=== PATIENT | female | born 1940 | race American Indian/Alaskan Native ===

== ENCOUNTER 2024-01-28 10:00 | Inpatient (IN) ==
[2024-01-28] MEDS: 0.9 % SODIUM CHLORIDE 1,000 ML IV ONE ×2 (11:10→16:36)
[2024-01-28 11:20] LABS: Basophils # (Auto) 0.04 K/mcL (0.00-0.30); Basophils % (Auto) 0.4 % (0.0-2.0); Eosinophils # (Auto) 0 K/mcL (0.00-0.70); Eosinophils % (Auto) 0 % (0.0-7.0); Hematocrit 32.3 % (34.1-44.9); Hemoglobin 10.9 g/dL (11.2-15.7); Lymphocytes # (Auto) 0.78 K/mcL (1.50-4.80); Lymphocytes % (Auto) 8.2 % (15.5-49.0); Mean Corpuscular HGB Conc 33.7 g/dL (31.0-36.0); Mean Platelet Volume 8.8 fL (8.8-12.5); Monocytes % (Auto) 6.3 % (1.0-12.0); Neutrophils % (Auto) 84.9 % (38.0-78.0); Platelet Count 319 K/mcL (140-440); RBC 3.33 M/mcL (3.59-5.38); Red Cell Distribution Width 14.7 % (11.5-14.5); WBC 9.5 K/mcL (4.5-11.0)
[2024-01-28] MEDS: ACETAMINOPHEN 650 MG/65 ML BAG IV ONE (11:42)
[2024-01-28] MEDS: ACETAMINOPHEN 325 MG TABLET PO ONE (11:43)
[2024-01-28 12:26] LABS: ALT/SGPT < 5 U/L (0-40); AST/SGOT 20 U/L (<32); Albumin 4.3 gm/dL (3.2-5.2); Albumin/Globulin Ratio 1.4 (1.0-2.3); Alkaline Phosphatase 74 U/L (39-117); Bilirubin,Total 0.6 mg/dL (0.1-1.0); Blood Urea Nitrogen 31 mg/dL (8-23); Calcium 9.5 mg/dL (8.6-10.4); Carbon Dioxide 19 mmol/L (22-30); Chloride 102 mmol/L (96-108); Globulin 3.1 gm/dL (2.2-3.7); Glomerular Filtration Rate 42; Glucose 64 mg/dL (70-105)
[2024-01-28 13:21] LABS: Amphetamine Screen,Urine None detected; Barbiturate Screen,Urine None detected; Benzodiazepines Screen,Urine None detected; Cannabinoid Screen,Urine None detected; Cocaine Screen,Urine None detected; Opiate Screen,Urine None detected; Oxycodone, Urine Screen None detected; Phencyclidine Screen,Urine None detected
[2024-01-28 13:31] LABS: Appearance,Urine CLEAR (Clear); Bacteria,Urine MOD /hpf (0); Bilirubin,Urine Negative (Negative); Color,Urine YELLOW; Culture Indicated,Urine Yes; Glucose,Urine (UA) >=500 mg/dL (Negative); Ketones,Urine Negative (Negative); Leukocyte Esterase,Urine Negative /uL (Negative); Mucus,Urine FEW /hpf; Nitrate,Urine Negative (Negative); Protein,Urine 30 mg/dL (Negative); Specific Gravity,Urine 1.014 (1.000-1.035); Urine Blood Negative (Negative); Urine Hyaline Cast 3 /lph (0-2); Urine RBC 1 /hpf (0-3); Urine Squamous Epithelial Cell 2 /hpf (0-4); Urine Transitional Epi Cells < 1 /hpf (0-2); Urine WBC 2 /hpf (0-4); Urobilinogen,Urine Negative
[2024-01-28] MEDS: DEXTROSE 50% 50 ML SYRINGE IV ONE ×2 (13:52→13:55)
[2024-01-28] MEDS: DEXTROSE 10 % IN WATER 1,000 ML IV SCH (14:02)
[2024-01-28 14:14] LABS: Alcohol, Blood < 10.1 mg/dL; Alcohol,Blood < 0.010 gm/dL (<0.010)
[2024-01-28 15:55] LABS: Hemoglobin A1C 6.1 % Hgb (4.0-6.0)
[2024-01-28] MEDS ORDERED: MAGNESIUM SULFATE 2 GM/50 ML BAG IV PRN (16:26)
[2024-01-28] MEDS ORDERED: POLYETHYLENE GLYCOL 3350 17 GM PACKET PO PRN (16:26)
[2024-01-28] MEDS ORDERED: DEXTROSE 31 GM ORAL.SUSP PO PRN (16:26)
[2024-01-28] MEDS ORDERED: ONDANSETRON 4 MG/2 ML VIAL IV PRN (16:26)
[2024-01-28] MEDS ORDERED: POTASSIUM CHLORIDE 20 MEQ TABLET PO PRN ×2 (16:26)
[2024-01-28] MEDS ORDERED: IPRATROPIUM/ALBUTEROL 3 ML AMPUL.NEB NEB PRN (16:26)
[2024-01-28] MEDS ORDERED: POTASSIUM CHLORIDE 40 MEQ in DEXTROSE 5% IN WATER 500 ML IV PRN (16:26)
[2024-01-28] MEDS ORDERED: DEXTROSE 50% 50 ML VIAL IV PRN (16:26)
[2024-01-28] MEDS ORDERED: ACETAMINOPHEN 325 MG TABLET PO PRN (16:26)
[2024-01-28] MEDS ORDERED: SENNOSIDES 1 TABLET PO PRN (16:26)
[2024-01-28] MEDS: INSULIN LISPRO 1 UNIT/0.01 ML UNIT SQ SCH (16:37)
[2024-01-28] MEDS: HYDROXYCHLOROQUINE 200 MG TABLET PO SCH (17:01)
[2024-01-28] MEDS: 0.9 % SODIUM CHLORIDE 10 ML SYRINGE IV SCH (17:04)
[2024-01-28] MEDS: DOCUSATE SODIUM 100 MG CAPSULE PO SCH (19:14)
[2024-01-28] MEDS: COLCHICINE 0.6 MG CAPSULE PO SCH (20:47)
[2024-01-29 05:46] LABS: Basophils # (Auto) 0.08 K/mcL (0.00-0.30); Basophils % (Auto) 1.4 % (0.0-2.0); Eosinophils # (Auto) 0.13 K/mcL (0.00-0.70); Eosinophils % (Auto) 2.3 % (0.0-7.0); Hematocrit 30.4 % (34.1-44.9); Hemoglobin 10.1 g/dL (11.2-15.7); Lymphocytes # (Auto) 1.34 K/mcL (1.50-4.80); Lymphocytes % (Auto) 24.1 % (15.5-49.0); Mean Corpuscular HGB Conc 33.2 g/dL (31.0-36.0); Mean Platelet Volume 8.6 fL (8.8-12.5); Monocytes # (Auto) 0.49 K/mcL (0.10-0.90); Monocytes % (Auto) 8.8 % (1.0-12.0); Platelet Count 239 K/mcL (140-440); RBC 3.07 M/mcL (3.59-5.38); Red Cell Distribution Width 14.8 % (11.5-14.5); WBC 5.6 K/mcL (4.5-11.0)
[2024-01-29 06:25] LABS: ALT/SGPT < 5 U/L (<40); AST/SGOT 24 U/L (<32); Albumin 3.7 gm/dL (3.2-5.2); Albumin/Globulin Ratio 1.5 (1.0-2.3); Alkaline Phosphatase 60 U/L (39-117); Bilirubin,Direct < 0.2 mg/dL (0-0.3); Bilirubin,Total 0.7 mg/dL (0.1-1.0); Blood Urea Nitrogen 26 mg/dL (8-23); Carbon Dioxide 19 mmol/L (22-30); Chloride 105 mmol/L (96-108); Globulin 2.4 gm/dL (2.2-3.7); Glomerular Filtration Rate 46; Glucose 99 mg/dL (70-105); Lactate Dehydrogenase 158 U/L (135-225); Triglycerides 150 mg/dL (<150); Uric Acid 5.3 mg/dL (2.5-8.0)
[2024-01-29] MEDS: METOPROLOL SUCCINATE 50 MG TAB.XL.24H PO SCH (08:07)
[2024-01-29] MEDS: FERROUS SULFATE 325 MG TABLET PO SCH (08:07)
[2024-01-29] MEDS: ENOXAPARIN 40 MG/0.4 ML SYRINGE SQ SCH (08:08)
[2024-01-29] MEDS: azaTHIOprine 50 MG TABLET PO SCH (08:08)
[2024-01-29] MEDS: ATORVASTATIN 20 MG TABLET PO SCH (08:08)
[2024-01-29] MEDS: SODIUM BICARBONATE 650 MG TABLET PO SCH (10:14)
[2024-01-29] MEDS: cefTRIAXone 1 GM VIAL IV SCH (10:14)
[2024-01-30 07:00] LABS: Blood Urea Nitrogen 27 mg/dL (8-23); Carbon Dioxide 18 mmol/L (22-30); Chloride 107 mmol/L (96-108); Glomerular Filtration Rate 59; Glucose 97 mg/dL (70-105)
[2024-01-30] MEDS: SODIUM BICARBONATE 650 MG TABLET PO SCH (08:22)
[2024-01-31] MEDS: CHLORTHALIDONE 25 MG TABLET PO SCH (09:41)
[2024-01-31] MEDS: amLODIPine 5 MG TABLET PO SCH (09:41)
[2024-01-31] MEDS: LISINOPRIL 20 MG TABLET PO SCH (09:42)
== END 2024-01-31 13:25 | DRG 637 ==
LOC: ED 10:00 → ICU 16:16
PROVIDERS: ADMIT Internal Medicine; ATTEND Internal Medicine